=== PATIENT | female | born 1995 | race Caucasian/White ===

== ENCOUNTER 2018-09-10 07:42 | Emergency (ER) | payer OTHER ==
[~2018-09-10] VITALS: Ht 170.2 cm; Wt 67.7 kg
[2018-09-10 07:45] VITALS: BP 140/87
== END 2018-09-10 09:40 | disposition home or self-care (01) ==
LOC: ED 09:27
DX: R07.0 Pain in throat (principal)
CPT/HCPCS: 70360; 99283